=== PATIENT | female | born 1990 | race Caucasian/White ===

== ENCOUNTER 2017-07-30 11:02 | Emergency (ER) | payer BC ==
[~2017-07-30] VITALS: Ht 162.6 cm; Wt 110.0 kg
[~2017-07-30 11:02] MED LIST: AMOXICILLIN500 MG PO; AUGMENTIN875TAB PO; BENZONATATE200 MG PO; CIPROFLOXACN500 MG PO; CORTISPORIN OTI10 ML AU; ENBREL50 MG/M1 IM; FLONASE NASAL50 MCG; LORTAB 1010 MG PO; METOPROL TAR25 MG PO; METOPROLOL; METRONIDAZOL500 MG PO; MUCINEX600 MG PO; NO; ORTHO TRI-CY PO; PAXIL; PAXIL40 MG PO; PERCOCET 5/325M1 TAB PO; PREVIFE2 PO; PROMETHAZINE25 MG PO; SOMA350 MG PO; TENORMIN50 MG PO; ZOFRAN ODT8 MG SL; ZPAK PO
[2017-07-30 12:32] LABS: URINE BILIRUBIN - DIPSTICK NEGATIVE (NEGATIVE); URINE BLOOD DIPSTICK NEGATIVE (NEGATIVE); URINE COLOR YELLOW; URINE GLUCOSE - DIPSTICK NEGATIVE (NEGATIVE); URINE KETONE NEGATIVE (NEGATIVE); URINE LEUK ESTERASE NEGATIVE (NEGATIVE); URINE NITRITE - DIPSTICK NEGATIVE (Negative); URINE PH 5.5 (4.5-8.0); URINE PROTEIN - DIPSTICK NEGATIVE (NEG-TRACE); URINE SPECIFIC GRAVITY >=1.030; URINE UROBILINOGEN - DIPSTICK 0.2 E.U./dL (0.2)
[2017-07-30 12:36] LABS: URINE CLARITY CLEAR
[2017-07-30 12:38] LABS: HEMATOCRIT 43.4 % (37.0-47.0); HEMOGLOBIN 14.9 g/dl (12.0-16.0); IMMATURE GRANULOCYTES 0.3 % (0.0-1.0); MEAN CELL VOLUME 87.3 fL CALC (80.0-100.0); MEAN CORPUSCULAR HGB CONC 34.3 g/L CALC (32.0-36.0); NEUT# 6.08 thou/uL (2.00-7.15); RED BLOOD COUNT 4.97 mill/uL (4.20-5.60); RED CELL DISTRI WIDTH 12.2 % (11.5-15.5)
[2017-07-30 12:54] LABS: ALBUMIN 4.1 g/dL (3.2-5.0); ALKALINE PHOSPHATASE 99 u/l (38-126); ANION GAP 18 (6-22 (CALC)); BILIRUBIN, TOTAL 0.5 mg/dL (0.0-1.4); BUN 9 mg/dL (7-17); BUN/CREATININE RATIO 13 (12-20 (CALC)); CARBON DIOXIDE 18 mmol/l (22-30); CHLORIDE 110 mmol/l (95-108); CREATININE 0.7 mg/dL (0.5-1.0); GFR > 60 ML/MIN (>=60 (CALC)); GFR FOR AFR.AMER. > 60 ML/MIN (>=60 (CALC)); GLUCOSE 95 mg/dL (65-105); POTASSIUM 4.3 mmol/l (3.5-5.1); SGOT/AST 20 u/l (14-36); SGPT/ALT 29 u/l (9-52); SODIUM 141 mmol/l (137-146); TOTAL PROTEIN 7.4 g/dL (6.3-8.2)
[2017-07-30 12:55] LABS: INFLUENZA A NONE DETECTED (NONE DETECT); INFLUENZA B NONE DETECTED (NONE DETECT)
[2017-07-30 14:26] VITALS: BP 136/88
[2017-07-30] MEDS ORDERED: MEDDOSEPAK PO (14:38)
== END 2017-07-30 14:35 | disposition home or self-care (01) | DRG 866 ==
LOC: ED 11:02
PROVIDERS: Emergency Medicine
DX: B34.9 Viral infection, unspecified (principal); I10 Essential (primary) hypertension; L40.9 Psoriasis, unspecified

== ENCOUNTER 2020-08-23 23:06 | Emergency (ER) | payer BC ==
[~2020-08-23] VITALS: Ht 160 cm; Wt 104.5 kg
[~2020-08-23 23:06] MED LIST changes: +MEDDOSEPAK PO
[2020-08-23] MEDS ORDERED: NORVASC5 M1 PO (23:24)
[2020-08-23] MEDS ORDERED: SINGULAIR10 MG PO (23:25)
[2020-08-23] MEDS ORDERED: ALLERGY RELIEF 25 MG PO (23:25)
[2020-08-23] MEDS ORDERED: OMEPRAZOLE DR40 MG PO (23:26)
[2020-08-23 23:38] LABS: HEMATOCRIT 42.3 % (37.0-47.0); HEMOGLOBIN 13.6 g/dl (12.0-16.0); IMMATURE GRANULOCYTES 0.3 % (0.0-5.0); MEAN CORPUSCULAR HGB 27.6 pG CALC (26.0-32.0); MEAN CORPUSCULAR HGB CONC 32.2 g/dL CAL (32.0-36.0); NEUT# 18.17 thou/uL (2.00-7.15); RED BLOOD COUNT 4.92 mill/uL (4.20-5.60); RED CELL DISTRI WIDTH 13.1 % (11.5-15.5)
[2020-08-24] MEDS ORDERED: AMOXICILLIN500 MG PO (00:08)
[2020-08-24 00:17] VITALS: BP 133/74
== END 2020-08-24 00:20 | disposition home or self-care (01) | DRG 153 ==
LOC: ED 23:06
PROVIDERS: Family Medicine
DX: J03.90 Acute tonsillitis, unspecified (principal); I10 Essential (primary) hypertension; Z20.822 Contact with and (suspected) exposure to COVID-19

== ENCOUNTER 2021-05-09 01:32 | Emergency (ER) | payer BC ==
[~2021-05-09] VITALS: Ht 160 cm; Wt 102.0 kg
[~2021-05-09 01:32] MED LIST changes: +ALLERGY RELIEF 25 MG PO; +NORVASC5 M1 PO; +OMEPRAZOLE DR40 MG PO; +SINGULAIR10 MG PO
[2021-05-09 02:19] LABS: HEMATOCRIT 40.4 % (37.0-47.0); HEMOGLOBIN 12.6 g/dl (12.0-16.0); IMMATURE GRANULOCYTES 0.6 % (0.0-5.0); MEAN CELL VOLUME 82.4 fL CALC (80.0-100.0); MEAN CORPUSCULAR HGB 25.7 pG CALC (26.0-32.0); MEAN CORPUSCULAR HGB CONC 31.2 g/dL CAL (32.0-36.0); NEUT# 10.9 thou/uL (2.00-7.15); RED BLOOD COUNT 4.9 mill/uL (4.20-5.60); RED CELL DISTRI WIDTH 13.5 % (11.5-15.5)
[2021-05-09 02:26] LABS: URINE BILIRUBIN - DIPSTICK NEGATIVE (NEGATIVE); URINE BLOOD DIPSTICK NEGATIVE (NEGATIVE); URINE COLOR YELLOW; URINE GLUCOSE - DIPSTICK NEGATIVE (NEGATIVE); URINE KETONE NEGATIVE (NEGATIVE); URINE LEUK ESTERASE NEGATIVE (NEGATIVE); URINE PH 8.5 (4.5-8.0); URINE PROTEIN - DIPSTICK NEGATIVE (NEG-TRACE); URINE SPECIFIC GRAVITY 1.015; URINE UROBILINOGEN - DIPSTICK 0.2 E.U./dL (0.2)
[2021-05-09 02:34] LABS: URINE NITRITE - DIPSTICK NEGATIVE (Negative)
[2021-05-09 02:36] LABS: ALBUMIN 4.2 g/dL (3.2-5.0); ALKALINE PHOSPHATASE 102 u/l (38-126); AMYLASE 45 u/l (30-110); ANION GAP 16 (6-22 (CALC)); BUN 12 mg/dL (7-17); BUN/CREATININE RATIO 21 (12-20 (CALC)); CARBON DIOXIDE 22 mmol/l (22-30); CHLORIDE 106 mmol/l (95-108); CREATININE 0.6 mg/dL (0.5-1.0); GFR > 60 ML/MIN (>=60 (CALC)); GFR FOR AFR.AMER. > 60 ML/MIN (>=60 (CALC)); LIPASE 52 u/l (23-300); POTASSIUM 3.9 mmol/l (3.5-5.1); SGOT/AST 24 u/l (14-36); SODIUM 140 mmol/l (137-146); TOTAL PROTEIN 7.9 g/dL (6.3-8.2)
[2021-05-09 02:41] LABS: BILIRUBIN, TOTAL 0.6 mg/dL (0.0-1.4)
[2021-05-09] MEDS ORDERED: ONDANSETRON4 MG PO (05:27)
[2021-05-09] MEDS ORDERED: CIPROFLOXACN500 MG PO (05:27)
[2021-05-09 06:10] VITALS: BP 129/75
== END 2021-05-09 06:30 | disposition home or self-care (01) | DRG 392 ==
LOC: ED 01:32
PROVIDERS: Emergency Medicine
DX: K52.9 Noninfective gastroenteritis and colitis, unspecified (principal); I10 Essential (primary) hypertension; K21.9 Gastro-esophageal reflux disease without esophagitis; Z20.822 Contact with and (suspected) exposure to COVID-19
CPT/HCPCS: J1956; Q9967

== ENCOUNTER 2023-03-01 15:46 | Emergency (ER) | payer OTHER ==
[~2023-03-01] VITALS: Ht 160 cm; Wt 108.5 kg
[2023-03-01] VITALS (10 sets, daily range): BP systolic 113–139; BP diastolic 66–85
[~2023-03-01 15:46] MED LIST changes: +AMOX/K CLAV875 M1 PO; +AZITHROMYCIN500 MG PO; +CEPHALEXIN500 M1 PO; +CLOBETASOL0.051 EX; +DOXYCYCLINE100 MG PO; +FATHER JOH10 MG/5 ML PO; +LEXAPRO10 MG PO; +MUPIROCIN2 % EX; +ONDANSETRON4 MG PO; +PEPCID20 MG PO; +TOPROL XL25 MG PO; +WEGOVY1 MG SC
[2023-03-01 17:14] LABS: BASO% 0.5 % (0-3); EOS% 1.4 % (0-8); HEMATOCRIT 45.3 % (37.0-47.0); HEMOGLOBIN 14.3 g/dl (12.0-16.0); LYMPH% 27.1 % (15-41); MEAN CELL VOLUME 84.8 fL CALC (80.0-100.0); MEAN CORPUSCULAR HGB 26.8 pG CALC (26.0-32.0); MEAN CORPUSCULAR HGB CONC 31.6 g/dL CAL (32.0-36.0); MONO% 6.5 % (2-13); NEUT# 5.98 thou/uL (2.00-7.15); NEUT% 64.5 % (42-76); RED BLOOD COUNT 5.34 mill/uL (4.20-5.60); RED CELL DISTRI WIDTH 12.9 % (11.5-15.5)
[2023-03-01 17:38] LABS: ALBUMIN 4.6 g/dL (3.2-5.0); ALKALINE PHOSPHATASE 101 u/l (38-126); ANION GAP 13 (6-22 (CALC)); BILIRUBIN, TOTAL 0.5 mg/dL (0.02-1.3); BUN 9 mg/dL (7-17); BUN/CREATININE RATIO 12 (12-20 (CALC)); CARBON DIOXIDE 26 mmol/l (22-30); CHLORIDE 105 mmol/l (95-108); CREATININE 0.8 mg/dL (0.5-1.0); GFR FOR AFR.AMER. > 60 ML/MIN (>=60 (CALC)); GFR OTHER RACES > 60 ML/MIN (>=60 (CALC)); LIPASE 80 u/l (23-300); POTASSIUM 3.9 mmol/l (3.5-5.1); SGOT/AST 29 u/l (14-36); SODIUM 140 mmol/l (137-146); TOTAL PROTEIN 8.5 g/dL (6.3-8.2)
[2023-03-01 17:45] LABS: URINE BILIRUBIN - DIPSTICK NEGATIVE (NEGATIVE); URINE COLOR YELLOW; URINE GLUCOSE - DIPSTICK NEGATIVE (NEGATIVE); URINE KETONE Negative (NEGATIVE); URINE PH 6.5 (4.5-8.0); URINE SPECIFIC GRAVITY 1.025
[2023-03-01 17:46] LABS: URINE BLOOD DIPSTICK NEGATIVE (NEGATIVE); URINE LEUK ESTERASE NEGATIVE (NEGATIVE); URINE NITRITE - DIPSTICK NEGATIVE (Negative); URINE PROTEIN - DIPSTICK NEGATIVE (NEG-TRACE); URINE UROBILINOGEN - DIPSTICK 0.2 E.U./dL (0.2)
[2023-03-01] MEDS ORDERED: TRAMADOL HYDROC50 M1 PO (20:05)
[2023-03-01] MEDS ORDERED: TORADOL PO (20:05)
[2023-03-06] MEDS ORDERED: PEPCID20 MG PO (19:43)
== END 2023-03-01 20:36 | disposition home or self-care (01) | DRG 392 ==
LOC: ED 15:46
PROVIDERS: Nurse Practitioner
DX: R10.32 Left lower quadrant pain (principal); E28.2 Polycystic ovarian syndrome; I10 Essential (primary) hypertension; K21.9 Gastro-esophageal reflux disease without esophagitis; F41.9 Anxiety disorder, unspecified; F32.A Depression, unspecified
CPT/HCPCS: Q9967

== ENCOUNTER 2024-07-02 07:50 | Day surgery (SDC) | payer OTHER ==
[~2024-07-02] VITALS: Ht 160 cm; Wt 108.9 kg
[~2024-07-02 07:50] MED LIST changes: +BIRTH CONTROL PILL PO; +ESCITALOPRAM PO; +PREDNISONE10 MG PO; +SLYND4 MG PO; +TORADOL PO; +TRAMADOL HYDROC50 M1 PO; +WELLBUTRIN150 M1 PO
[2024-07-02] MEDS ORDERED: FAMOTIDINE 10MG/ML 2ML SDV IV ONE (07:54)
[2024-07-02] MEDS ORDERED: LACTATED RINGER'S 1,000 ML IV ONE (07:55)
[2024-07-02 09:57] VITALS: BP 112/66
[2024-07-02] MEDS ORDERED: PROPOFOL 200 MG/20 ML VIAL IV ONE (13:51)
[2024-07-02] MEDS ORDERED: GLYCOPYRROLATE 0.2 MG/ML IV ONE (13:51)
== END 2024-07-02 09:49 | disposition home or self-care (01) | DRG 392 ==
LOC: ENDO 07:50 → ORM 09:30 → ENDO 09:30
PROVIDERS: ATTEND Surgery
PROC: 0DB98ZX Excision of Duodenum, Via Natural or Artificial Opening Endoscopic, Diagnostic (ICD-10-PCS; principal; 2024-07-02)
PROC: 0DB78ZX Excision of Stomach, Pylorus, Via Natural or Artificial Opening Endoscopic, Diagnostic (ICD-10-PCS; 2024-07-02)
PROC: 0DB48ZX Excision of Esophagogastric Junction, Via Natural or Artificial Opening Endoscopic, Diagnostic (ICD-10-PCS; 2024-07-02)
DX: K29.50 Unspecified chronic gastritis without bleeding (principal); K21.00 Gastro-esophageal reflux disease with esophagitis, without bleeding; K29.80 Duodenitis without bleeding; K44.9 Diaphragmatic hernia without obstruction or gangrene; I10 Essential (primary) hypertension